=== PATIENT | male | born 1960 | race Caucasian/White ===

== ENCOUNTER 2017-06-26 21:54 | Observation (INO) | payer MEDICAID, SELFPAY ==
[2017-06-26 22:00] VITALS: BP 140/47; BP 142/72; PULSE 74; RESP 16; TEMP 36.6; O2SAT 94
[2017-06-26 22:13] VITALS: PULSE 76
[2017-06-26 22:55] VITALS: BMI 41.6
[2017-06-26 23:12] VITALS: BMI 41.6
--- NOTE | 2017-06-26 23:19 | PCM.HP.STD ---
Problem List (1) Depression Status: Acute (2) Chest pain Status: Acute (3) Lipidemia Status: Acute History of Present Illness Date of Admission: 06/26/17 Chief Complaint: Chest pain The patient is a 57 year old male w/ h/o HTN, lipidemia and depression admitted for chest pain. Pt has chest pressure while running errands with his aunt. 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 Nothing appeared to make it better or worse. Pain was mostly substernal. Pain was not associated with any other factors. No radiation of pain. No SOB. No diaphoresis. He was transferred from [place] to [place] for admission. Past Medical History Allergies Penicillins [PCN] Allergy (Verified 06/26/17 22:23) Other Home Medications: Ambulatory Orders Medication Instructions Recorded Amlodipine [Norvasc] 5 mg PO DAILY 06/26/17 Ergocalciferol [Vitamin D] 50,000 unit PO QWEEK 06/26/17 Omeprazole [Omeprazole] 20 mg PO DAILY 06/26/17 RX: Dicyclomine HCl [Bentyl] 10 mg PO TID 06/26/17 RX: Polyvinyl Alcohol [Artificial 1 drop Q6H 06/26/17 Tears] RX: Simvastatin [Zocor] 40 mg PO DAILY 06/26/17 Triamterene-Hctz 37.5-25 mg Tb 25 mg PO DAILY 06/26/17 Lives: Alone Smoking Status: Current some day smoker Alcohol: None Drugs: None - *Family History Maternal History Items: No pertinent history Review of Systems Constitutional: Denies: Chills, Fever, Weight Change HEENT: Denies: Head Aches, Sinus Congestion, Sinus Drainage Cardiovascular: Reports: Chest Pain, Chest Tightness. Denies: Palpitations Respiratory: Denies: Cough, Shortness of breath at rest, Sputum production Gastrointestinal: Denies: Abdominal Pain, Nausea, Vomiting Genitourinary: Denies: Dysuria Musculoskeletal: Denies: Joint Pain, Joint Tenderness Skin: Denies: Rash, Wounds Neurological: Denies: Numbness, Tingling, Focal weakness Psychiatric: Denies: Anxiety, Depression, Homicidal Ideations, Suicidal Ideations Hematologic/ Lymphatic: Denies: Easy Bruising, Easy Bleeding VTE Information - Inpt Only VTE Present on Admission: No VTE Mechan Device Prophylaxis: SCD's VTE Pharm Prophylaxis ordered?: Yes Patient Problems: Active and Suspected Problems Depression (Acute) Chest pain (Acute) Lipidemia (Acute) - Physical Exam General: Alert, Oriented x3, Cooperative HEENT: Atraumatic, PERRLA, EOMI, Normocephalic Neck: Supple, No JVD, Negative Carotid Bruits Lungs: Clear to auscultation, Normal air movement Cardiovascular: Regular rate, No murmurs Abdomen: Bowel Sounds Present, Soft, Non Tender Extremities: No edema, Capillary Refill Less than 3 Seconds Skin: No rashes, No breakdown Musculoskeletal: No Tenderness to Palpation of Joints or Extremities Neurological: Cranial nerves II-XII grossly intact Psych/Mental Status: Normal Affect, Appropriate Vital Signs Temp Pulse Resp BP Pulse Ox 97.9 F 74 16 140/47 H 94 06/26/17 22:00 06/26/17 22:00 06/26/17 22:00 06/26/17 22:00 06/26/17 22:00 Oxygen Delivery Method Room Air Weight: 143.1 kg Body Mass Index (BMI) 41.6 Laboratory Tests Past 24 Hrs 06/26/17 23:05 Troponin I Pending Assessment/Plan Active and Suspected Problems Depression (Acute) Chest pain (Acute) Lipidemia (Acute) 57 year old male w/ h/o HTN, lipidemia and depression admitted for chest pain. 1) Chest pain: Heart score 4 Trop negative. Chest xray and EKG unremarkable. Will get serial trops. Will get ECHO. Will get stress test in AM. 2) Depression: Stable. Monitor. 3) HTN: SBP 120s. Resume home meds. 4) Prophylaxis: Heparin.
[2017-06-27] VITALS (9 sets, daily range): BP systolic 107–142; BP diastolic 53–80; PULSE 61–84; RESP 16; TEMP 36.7–36.8; O2SAT 94–96
[2017-06-27 02:49] LABS: Amphetamine Urine VISTA NEGATIVE (<1000 ng/mL); Barbiturate Urine VISTA NEGATIVE (< 200 ng/mL); Benzodiazepine Urine VISTA NEGATIVE (< 200 ng/mL); Cocaine Urine VISTA NEGATIVE (< 300 ng/mL); Ecstacy Urine VISTA NEGATIVE (< 500 ng/mL); Methadone Urine VISTA NEGATIVE (< 300 ng/mL); PCP Urine VISTA NEGATIVE (< 25 ng/mL); THC Urine VISTA NEGATIVE (< 50 ng/mL); Vista UDS pH Range 5
--- NOTE | 2017-06-27 04:00 | EKG12_ITS ---
Test Reason : AM EKG Blood Pressure : / mmHG Vent. Rate : 057 BPM Atrial Rate : 057 BPM P-R Int : 268 ms QRS Dur : 086 ms QT Int : 416 ms P-R-T Axes : 036 041 047 degrees QTc Int : 404 ms Sinus bradycardia with 1st degree A-V block Confirmed by NAKITA ROLDAN, FAITH ([id number]), food editor [employer] ([id number]) on 07/01/2017 3:03:47 PM Referred By: DR LAI Confirmed By:FAITH MACE MD
[2017-06-27 04:51] LABS: Absolute Lymphocyte Count 2.99 X10^3/ul (0.83-4.51); Absolute Neutrophil Count 3.6 X10^3/uL (2.0-7.7); Basophil# 0.04 X10^3/uL; Basophil% 0.5 % (0-1); Eosinophil# 0.43 X10^3/uL; Eosinophils% 5.4 % (0-5); Hematocrit 38.5 % (40-54); Hemoglobin 12.4 g/dl (13.0-16.5); Lymphocyte # 2.99 X10^3/ul (4.0); Lymphocyte % 37.7 % (19-41); Mean Corp Hgb Conc 32.2 g/gl (32-36); Mean Corpuscular Hgb 29.7 pg (27.0-32.0); Mean Corpuscular Volume 92.1 fL (80-94); Mean Platelet Vol. 10.4 fl (6.2-12.0); Monocyte# 0.88 X10^3/uL; Monocyte% 11.1 % (0-10); Neutrophil # 3.58 X10^3/uL (2.7-7.7); Neutrophil % 45.2 % (47-70); Platelet Count 261 K/mm3 (150-450); RBC Distribution Width CV 13.8 % (11.6-14.6); RBC Distribution Width SD 46.3 fl (35.1-43.9); Red Blood Count 4.18 M/mm3 (4.6-6.2); White Blood Count 7.9 K/mm3 (4.4-11.0)
[2017-06-27 04:53] LABS: International Normalized Ratio 1.1; POSITIVE COUNT NO; POSITIVE DIFFERENTIAL NO; POSITIVE MORPHOLOGY NO; Prothrombin Time (Protime)PT. 13.4 SECONDS (11.7-14.9)
[2017-06-27 04:54] LABS: Partial Thromboplast Time 36.5 Seconds (24.1-36.2)
[2017-06-27 05:16] LABS: ALB/GLOB Ratio 0.8 RATIO (0.9-2.4); AST(SGOT) 15 U/L (15-37); Alanine Aminotransfer ALT/SGPT 26 U/L (16-61); Albumin, Serum 2.9 g/dL (3.2-5.0); Alkaline Phosphatase 103 U/L (45-117); Anion Gap 6 (5-15); BUN 11 mg/dL (7-18); BUN/Creat Ratio 11.1 RATIO (10-20); Calcium,Total 8.4 mg/dL (8.5-10.1); Chloride 105 mmol/L (98-107); Cholesterol 153 mg/dL (200); Creatinine, Serum 0.99 mg/dL (0.70-1.30); EST Glomerular Filtration Rate 83 mL/min (>60); Est Glom Filt Rate - Afr Amer 100 mL/min (>60); Estimated Creatinine Clearance 93.04 ml/min; Globulin 3.7 g/dL (2.2-4.2); Glucose 110 mg/dL (74-106); High Density Lipoprotein 27 mg/dL; Magnesium 2.3 mg/dL (1.6-2.6); Potassium 4.5 mmol/L (3.5-5.1); Protein, Total 6.6 g/dL (6.4-8.2); Sodium Level 141 mmol/L (136-145); Thyroid Stim Hormone (TSH) 0.52 uIU/mL (0.358-3.74); Triglycerides 110 mg/dL; Very Low Density Lipoprotein 22 mg/dL (5-40)
--- NOTE | 2017-06-27 05:55 | ECHOD_ITS ---
Reason For Study: Chest pain Procedure This was a 2D Doppler, Color Flow transthoracic echocardiogram. Exam performed in department. Left Ventricle Normal LV size. Left ventricular systolic function is normal. The estimated ejection fraction is 55 %. Transmitral and pulmonary venous doppler flow suggestive of impaired relaxation of left ventricle. No regional wall motion abnormalities noted. Right Ventricle Normal RV size. Normal systolic function. Atria The left atrium is mildly enlarged. Normal right atrium. Mitral Valve Normal mitral valve. Tricuspid Valve Normal tricuspid valve. Mild tricuspid valve insufficiency. Aortic Valve Normal aortic valve. Pulmonic Valve The pulmonic valve is not well visualized. Great Vessels Normal aortic root. Pericardium/Pleural No pericardial effusion. MMode/2D Measurements & Calculations LVIDd: 5.0 cm IVSd: 1.1 cm Ao root diam: 3.4 cm LVIDs: 3.4 cm LVPWd: 1.0 cm LA dimension: 4.7 cm FS: 32.3 % LAV(MOD-bp): 81.4 ml LA A4 area: 25.9 cm2 RA A4 area: 13.3 cm2 LAV(MOD-bp) Indexed: 31.2 ml/m2 LAV(MOD-sp2): 69.1 ml LAV(MOD-sp4): 86.7 ml Doppler Measurements & Calculations MV E max chirag: 66.9 cm/sec Lat Peak E' Chirag: 9.4 cm/sec Med Peak E' Chirag: 9.7 cm/sec MV A max chirag: 81.3 cm/sec E/E' lat: 7.1 E/E' med: 6.9 MV E/A: 0.82 Ao V2 max: 105.7 cm/sec LV V1 max: 90.8 cm/sec PA V2 max: 80.9 cm/sec Ao max P.5 mmHg LV V1 max P.3 mmHg Interpretation Summary Normal LV size. The estimated ejection fraction is 55 %. Transmitral and pulmonary venous doppler flow suggestive of impaired relaxation of left ventricle Left ventricular systolic function is normal. Ordering Physician: Corey Adame Performed By: Rosy Lara RDCS
[2017-06-27] MEDS: Aspirin E.C. 81 MG Tablet PO (06:23)
[2017-06-27] MEDS: amLODIPine 5 MG Tablet PO (08:54)
[2017-06-27] MEDS: Triamterene 37.5MG/Hctz 25MG Capsule 1 CAP PO (11:23)
[2017-06-27] MEDS: Carvedilol 3.125 MG TABLET PO (11:23)
[2017-06-27] MEDS: Pantoprazole Sodium 20 MG Tablet PO (11:23)
--- NOTE | 2017-06-27 11:48 | PCM.DC ---
- Discharge Diagnoses Current Active Problems: Current Active and Chronic Problems Depression (Acute) Chest pain (Acute) Lipidemia (Acute) You will use the following diet at home:: Cardiac Discharge Activity: Return to Normal Activity Call your doctor if you observe: Fever of 101 or Higher, Shortness of breath, Dizziness, Fainting spells, Chest pain, Increased palpitations (irregular heartbeat) Allergies/Adverse Reactions: Allergies Penicillins [PCN] Allergy (Verified 06/26/17 22:23) Other Medications to take at Discharge Amlodipine [Norvasc] 5 mg PO DAILY 06/26/17 Dicyclomine HCl [Bentyl] 10 mg PO TID 06/26/17 Ergocalciferol [Vitamin D] 50,000 unit PO QWEEK 06/26/17 Omeprazole 20 mg PO DAILY 06/26/17 Polyvinyl Alcohol [Artificial Tears] 1 drop Q6H 06/26/17 Simvastatin [Zocor] 40 mg PO DAILY 06/26/17 Triamterene-Hctz 37.5-25 mg Tb 25 mg PO DAILY 06/26/17 Please Follow Up With: Primary Care Physician When: 1-2 Weeks Proposed Discharge Date: 06/27/17
--- NOTE | 2017-06-27 12:05 | STRESSREP ---
Stress Test Report Pharmacologic myocardial perfusion stress test. 57-year-old man with a history of atypical chest pain Stress protocol: Resting EKG demonstrates normal sinus rhythm with a rate of 65 bpm normal intervals are noted. 0.4 mg regadenoson was infused per usual protocol followed by rapid intravenous saline flush injection continuous EKG monitoring was performed. The maximum heart rate attained was 83 bpm which was 50% of the maximum predicted heart rate. The maximum workload attained was 1 metabolic equivalent. At rest there were no ST or T-wave changes noted suggest abnormal flow reserve at peak infusion no ST or T-wave changes were noted to suggest abnormal flow reserve. No clinical angina was noted. The resting blood pressure was 152/80 mmHg with a final blood pressure 142/68 mmHg. Myocardial perfusion protocol: 14.3 mCi of technetium 99m sestamibi was injected at rest. 0.4 mg regadenoson was infused per usual protocol peak infusion 45.0 mCi of technetium 99m sestamibi was injected stress images were obtained stress and rest images were reconstructed and compared in the short axis vertical long and horizontal long axis. Gated images were also obtained. Perfusion SPECT analysis. There was a fair amount of motion artifact noted as well as possible mild infiltration of tracer agent in the arm. The stress images however demonstrated uniform uptake of tracer noted in all areas of the myocardium. The resting images demonstrated no obvious areas of reversibility to suggest ischemia. No previous infarct was noted. Gated SPECT analysis Gated ejection fraction is noted to be 62%. Conclusion: Normal pharmacologic myocardial perfusion stress test. Preserved ejection fraction.
[2017-06-27] MEDS: Dicyclomine 10 MG Capsule PO (13:39)
--- NOTE | 2017-06-27 13:42 | PCM.DC.SUM ---
<Alisa Qureshi - Last Filed: 06/27/17 13:50> Discharge Date and Diagnosis Date of Admission: 06/26/17 Date of Discharge: 06/27/17 - Primary Discharge Diagnosis Active and Suspected Problems 1. Chest pain-ACS ruled out - Secondary Discharge Diagnosis Hypertension Hyperlipidemia GERD Depression Hospital Course and Treatment Imaging Results: Operations: None Procedures: 2-D Echocardiogram, Stress test Summary of Care Provided: The patient is a 57 year old M admitted 06/26/17 due to chest pain. He has a past medical history of hypertension, hyperlipidemia, depression, GERD. Patient denies further chest pain. EKG without signs of ischemia. Chest x-ray unremarkable. Troponin negative ?4. Patient underwent nuclear stress test which was negative for ischemia. Echocardiogram showed an estimated ejection fraction of 55%. ACS ruled out. Other chronic medical conditions as noted above are stable at this time. Patient seen and examined prior to discharge. Heart rate regular rate and rhythm. Lungs clear. Abdomen soft, nontender. Neuro grossly intact. Vital signs stable. Patient is stable for discharge home. He can continue outpatient follow-up with primary care physician. Discharge Diet: Low fat/ Low Cholesterol Discharge Activity: Return to Normal Activity Call your doctor if you observe: Fever of 101 or Higher, Shortness of breath, Dizziness, Fainting spells, Chest pain, Increased palpitations (irregular heartbeat) Home Medications: Medications to take at Discharge Amlodipine [Norvasc] 5 mg PO DAILY 06/26/17 Dicyclomine HCl [Bentyl] 10 mg PO TID 06/26/17 Ergocalciferol [Vitamin D] 50,000 unit PO QWEEK 06/26/17 Omeprazole 20 mg PO DAILY 06/26/17 Polyvinyl Alcohol [Artificial Tears] 1 drop Q6H 06/26/17 Simvastatin [Zocor] 40 mg PO DAILY 06/26/17 Triamterene-Hctz 37.5-25 mg Tb 25 mg PO DAILY 06/26/17 Please Follow Up With: Primary Care Physician When: 1-2 Weeks Disposition: Home Minutes spent on discharge:: 35 Patient Condition:: Stable Meaningful Use Info Meaningful Use Diagnoses (Choose all that apply): None applicable <Jay Flores - Last Filed: 06/27/17 14:13> Hospital Course and Treatment Imaging Results: 06/27/17 05:55 Echo Complete [ECHO] AM (NON MEDS) Nuclear Stress Test - Chemical [NM] AM (NON MEDS) Summary of Care Provided: The patient is a 57 year old M multiple comorbidities including hypertension, dyslipidemia BMI of 41.6 admitted with chest pain. Patient was placed on monitored bed did rule out MT with serial cardiac enzymes patient subsequently underwent a nuclear stress test which was negative for stress-induced ischemia Hospital course as elicited above by Alisa Qureshi NP C. Time spent on discharge process 35 minutes Code Visit OBSV E&M: 36969 Observation care discharge
== END 2017-06-27 11:49 | disposition home or self-care (01) ==
PROVIDERS: Admitting Provider Internal Medicine; Visit Provider Internal Medicine
DX: R07.89 Other chest pain (principal); I10 Essential (primary) hypertension; K21.9 Gastro-esophageal reflux disease without esophagitis; E78.5 Hyperlipidemia, unspecified; Z79.899 Other long term (current) drug therapy; F17.200 Nicotine dependence, unspecified, uncomplicated; F32.9 Major depressive disorder, single episode, unspecified
CPT/HCPCS: 36415; 78452; 80053; 80061; 80307; 83735; 84443; 84484; 85025; 85610; 85730; 93005; 93017; 93306; 97802; 99218; 99406; A9500; A4216; G0378; J2785